=== PATIENT | male | born 1950 | race Caucasian/White ===

== ENCOUNTER 2018-10-31 17:38 | Emergency (ER) | payer MEDICARE, OTHER ==
[2018-10-31] MEDS ORDERED: Bupivacaine 0.5% 10 ML VIAL ONE (17:48)
[2018-10-31] MEDS ORDERED: Lidocaine 1% 20 ML MDV ONE (17:48)
[2018-10-31] MEDS ORDERED: Adacel (T-DAP) 0.5 ML SYRINGE ONE (17:54)
[2018-10-31] MEDS ORDERED: Bacitracin Zinc 1 Packet ONE (18:26)
== END 2018-10-31 18:35 | disposition home or self-care (01) ==
LOC: SCSER 17:38
DX: S61.214A Laceration without foreign body of right ring finger without damage to nail, initial encounter (principal); N30.01 Acute cystitis with hematuria; E78.5 Hyperlipidemia, unspecified; Z79.899 Other long term (current) drug therapy; W45.8XXA Other foreign body or object entering through skin, initial encounter
CPT/HCPCS: 12002; 90471; 90715; J2001; J3490

== ENCOUNTER 2018-11-13 11:08 | Emergency (ER) | payer MEDICARE, OTHER ==
[2018-11-13] MEDS ORDERED: Bacitracin Zinc 1 Packet ONE (12:03)
== END 2018-11-13 12:05 | disposition home or self-care (01) ==
LOC: SCSER 11:08
DX: S61.412D Laceration without foreign body of left hand, subsequent encounter (principal); I10 Essential (primary) hypertension; E78.5 Hyperlipidemia, unspecified; Z79.899 Other long term (current) drug therapy; X58.XXXD Exposure to other specified factors, subsequent encounter

== ENCOUNTER 2019-05-07 07:22 | Emergency (ER) | payer MEDICARE, OTHER | END 2019-05-07 07:48 | disposition home or self-care (01) | LOC: SCSER 07:22 | DX: L23.7 Allergic contact dermatitis due to plants, except food (principal); I10 Essential (primary) hypertension; Z79.899 Other long term (current) drug therapy | CPT/HCPCS: 99282 ==